=== PATIENT | female | born 1970 | race Caucasian/White ===

== ENCOUNTER 2017-11-16 12:19 | Outpatient (CLI) | payer OTHER ==
--- NOTE | 2017-11-16 14:45 | ULT ---
RENAL ULTRASOUND: HISTORY: Hematuria. COMPARISON: None. TECHNIQUE: Sagittal and transverse imaging of the kidneys is performed. FINDINGS: The urinary bladder has an overall normal appearance. No obvious mucosal abnormality. Prevoid volum e is 142 mL. The left and right ureteral jets are identified. There is increased echogenicity of the left and right renal cortex. Correlate clinically for medical renal disease. No discrete masses in either kidney. Bilaterally, no hydronephrosis. The right kid neri measures 10.4 x 4.7 x 3.9 cm. The left kidney measures 10.5 x 5.8 x 5.0 cm. IMPRESSION: Increased echogenicity of the left and right kidney. Correlate clinically for medical renal disease. No hydronephrosis. POS: [facility]
== END 2017-11-16 12:20 | disposition home or self-care (01) ==
LOC: ULT 12:19
PROVIDERS: ATTEND Urology
DX: R31.9 Hematuria, unspecified (principal); N28.9 Disorder of kidney and ureter, unspecified
CPT/HCPCS: 76770

== ENCOUNTER 2018-10-11 11:15 | Emergency (ER) | payer OTHER | END 2018-10-11 11:37 | disposition home or self-care (01) | LOC: ERS 11:15 | DX: B02.9 Zoster without complications (principal); F41.9 Anxiety disorder, unspecified; F17.210 Nicotine dependence, cigarettes, uncomplicated; Z79.899 Other long term (current) drug therapy; Z79.51 Long term (current) use of inhaled steroids | CPT/HCPCS: 99283 ==

== ENCOUNTER 2018-11-13 01:37 | Outpatient (CLI) | payer OTHER ==
[2018-11-13 10:13] LABS: #Eosinphils 0.1 thou/uL (0.0-0.7); #Monocytes 0.5 thou/uL (0.11-0.59); #Neutrophils 3.6 thou/uL (1.40-6.50); %Basophils 0.7 % (0.0-1.0); %Eosinophils 1.2 % (0.0-10.0); %Lymphocytes 41.9 % (21.0-51.0); %Monocytes 6.7 % (0.0-10.0); %Neutrophils 49.5 % (42.0-75.0); Hemoglobin 13.1 g/dL (12.0-16.0); Mean Corpuscular HGB CONC 33.5 g/dL (32.0-36.0); Mean Corpuscular Hemoglobin 32.3 pg (27.0-31.0); Mean Corpuscular Volume 96.4 fL (78.0-98.0); Mean Platelet Volume 8.7 fL (7.4-10.4); Platelet Count 165 thou/uL (130-400); RBC Distribution Width 13.8 % (11.5-14.5); Red Blood Cell (RBC) Count 4.05 mill/uL (4.20-5.40); White Blood Cell (WBC) Count 7.3 thou/uL (4.8-10.8)
== END 2018-11-13 01:38 | disposition home or self-care (01) ==
LOC: LABBT 01:37
PROVIDERS: ATTEND Orthopaedic Surgery
DX: Z01.812 Encounter for preprocedural laboratory examination (principal); G56.01 Carpal tunnel syndrome, right upper limb
CPT/HCPCS: 85025

== ENCOUNTER 2018-11-15 06:26 | Day surgery (SDC) | payer OTHER ==
[2018-11-13 09:23] VITALS: BMI 19.7
[2018-11-15] MEDS ORDERED: Lidocaine 1% w/Epinephrine 1:100K 20 ML VIAL ONE (07:59)
[2018-11-15] MEDS ORDERED: Scopolamine 1.5 mg/72 hour Patch ONE (08:05)
[2018-11-15] MEDS ORDERED: PROPOFOL 200 MG/20 ML VIAL ONE (10:48)
--- NOTE | 2018-11-15 13:32 | OP ---
DATE OF PROCEDURE: 11/15/2018 PREOPERATIVE DIAGNOSIS: Right carpal tunnel syndrome. POSTOPERATIVE DIAGNOSIS: Right carpal tunnel syndrome. PROCEDURE PERFORMED: Right open carpal tunnel release. [employer]: None. ANESTHESIA: Massimo Myers MD. The patient received a LMA with 10 mL of 1% lidocaine with epinephrine. ESTIMATED BLOOD LOSS: Less than 50 mL. TOURNIQUET TIME: 4 minutes at 250 mmHg. ANTIBIOTICS: Ancef 2 g. IMPLANTS: None. COMPLICATIONS: None. HISTORY OF PRESENT ILLNESS: Ms. Patten is a pleasant 48-year-old female, who presented to me with right wrist pain, numbness and tingling. The patient had a history of hand laceration when she was 11-year-old with no functional deficits afterwards. The patient had injection in August, which gave a good relief from her numbness and tingling in her hand. I discussed that she pain relief from the injection, but she had failed conservative measures. I discussed the risks and benefits of right open carpal tunnel release to include pain, scar, bleeding, infection, decreased range of motion and strength, continued pain, damage to vital structures, and loss of life or limb. The patient understood the risks and benefits and would like to proceed. DESCRIPTION OF PROCEDURE: Time-out was performed designating the patient's right upper extremity as the operative site, based on site, consents, and marking. After time-out, the patient's right hand was prepped and draped in sterile fashion. We made an incision down proximal to Elizondo's cardinal line in-line with the patient's 4th ray down through the skin, down through the palmar fascia coming down on the patient's transverse carpal ligament and the palmaris brevis. We incised in- line, released to ensure there was no adhesions or compression proximally. We washed the wound, controlled bleeding, closed with 4-0 nylon, and placed a soft tissue dressing. The patient will follow up with me in 10 to 12 days. Sent home with hydrocodone. Begin range of motion of the fingers. I injected a total of 10 mL of lidocaine pre and postprocedure for pain relief. Job ID: [id number] MTDD
== END 2018-11-15 10:40 | disposition home or self-care (01) ==
LOC: SDC 06:26
PROVIDERS: ATTEND Orthopaedic Surgery
PROC: 01N50ZZ Release Median Nerve, Open Approach (ICD-10-PCS; principal; 2018-11-15)
DX: G56.01 Carpal tunnel syndrome, right upper limb (principal); E78.5 Hyperlipidemia, unspecified; G43.909 Migraine, unspecified, not intractable, without status migrainosus; J30.9 Allergic rhinitis, unspecified; F32.9 Major depressive disorder, single episode, unspecified; F41.1 Generalized anxiety disorder; Z79.899 Other long term (current) drug therapy; Z88.1 Allergy status to other antibiotic agents; Z88.5 Allergy status to narcotic agent; Z88.8 Allergy status to other drugs, medicaments and biological substances; Z91.041 Radiographic dye allergy status; Z91.013 Allergy to seafood
CPT/HCPCS: J0690; J2001

== ENCOUNTER 2019-07-04 15:16 | Outpatient (CLI) | payer OTHER ==
--- NOTE | 2019-07-04 15:46 | ULT ---
BILATERAL RENAL ULTRASOUND: 07/04/19 HISTORY: Chronic kidney disease. FINDINGS: The right kidney measures 10.5 cm in length and the left kidney measures 10.6 cm in length. No focal mass or hydronephrosis seen. Cortical thickening and echodensity is normal. The urinary bladder is in completely distended with a volume of 26 mL. IMPRESSION: No significant abnormalities are seen. POS: [facility]
== END 2019-07-04 15:17 | disposition home or self-care (01) ==
LOC: BICULT 15:16
PROVIDERS: ATTEND Internal Medicine Nephrology
DX: N18.1 Chronic kidney disease, stage 1 (principal)
CPT/HCPCS: 76770

== ENCOUNTER 2020-10-05 14:49 | Outpatient (CLI) | payer OTHER | END 2020-10-05 14:50 | disposition home or self-care (01) | LOC: BICRAD 14:49 | PROVIDERS: ATTEND Internal Medicine | DX: Z02.71 Encounter for disability determination (principal); M47.816 Spondylosis without myelopathy or radiculopathy, lumbar region | CPT/HCPCS: 71046; 72100 ==

== ENCOUNTER 2023-06-16 14:07 | Outpatient (CLI) | payer OTHER, MEDICAID | END 2023-06-16 14:08 | disposition home or self-care (01) | LOC: BICCT 14:07 | PROVIDERS: ATTEND Registered Nurse | DX: Z12.2 Encounter for screening for malignant neoplasm of respiratory organs (principal); Z87.891 Personal history of nicotine dependence | CPT/HCPCS: 71271 ==

== ENCOUNTER 2023-10-05 15:19 | Outpatient (CLI) | payer OTHER, MEDICAID | END 2023-10-05 15:20 | disposition home or self-care (01) | LOC: BICRAD 15:19 | PROVIDERS: ATTEND Specialist | DX: M47.812 Spondylosis without myelopathy or radiculopathy, cervical region (principal); M43.12 Spondylolisthesis, cervical region | CPT/HCPCS: 72040 ==

== ENCOUNTER 2024-05-22 09:01 | Emergency (ER) | payer OTHER ==
[2024-05-22 10:05] LABS: #Basophils 0.03 10x3/uL (0.0-0.2); %Basophils 0.4 % (0.0-1.0); %Eosinophils 0.8 % (0.0-10.0); %Lymphocytes 32.4 % (21.0-51.0); %Monocytes 7.2 % (0.0-10.0); %Neutrophils 59.1 % (42.0-75.0); Hematocrit 36.7 % (36.0-47.0); Hemoglobin 12.2 g/dL (12.0-16.0); Mean Corpuscular HGB CONC 33.2 g/dL (32.0-36.0); Mean Corpuscular Hemoglobin 30.1 pg (27.0-31.0); Mean Corpuscular Volume 90.6 fL (78.0-98.0); Platelet Count 257 10x3/uL (130-400); RBC Distribution Width 14.6 % (11.5-14.5); Red Blood Cell (RBC) Count 4.05 mill/uL (4.20-5.40)
[2024-05-22 10:19] LABS: ALT (SGPT) 28 U/L (8-55); AST (SGOT) 29 U/L (5-34); Albumin 4.1 g/dL (3.5-5.0); Alkaline Phosphatase 57 U/L (40-110); Anion Gap 12 mmol/L (10-20); BUN (Urea Nitrogen) 13 mg/dL (9.8-20.1); Bilirubin, Total 0.3 mg/dL (0.2-1.2); Calc. Creatinine Clearance 0 mL/min (70-130); Calcium 9.3 mg/dL (7.8-10.44); Carbon Dioxide 28 mmol/L (22-29); Chloride 105 mmol/L (98-107); Estimated GFR 76; Globulin 3.3 g/dL (2.4-3.5); Glucose 111 mg/dL (70-105); Protein, Total 7.4 g/dL (6.0-8.3); Sodium 141 mmol/L (136-145)
[2024-05-22 10:48] LABS: Bacteria/HPF None Seen HPF (None Seen); Bilirubin Negative (Negative); Blood, Urine 3+ (Negative); CAUTI Indications for Culture Pelvic or flank pain; Clarity Clear (Clear); Glucose, Urine (Dipstick) Normal (Negative); Ketone, Urine Negative (Negative); Leukocyte Negative Leu/uL (Negative); Nitrite Negative (Negative); Protein, Urine (Dipstick) Negative (Neg-Trace); RBC/HPF 21-50 HPF (0-3); Specific Gravity, Urine 1.009 (1.002-1.036); Squamous Epithelial 0-3 HPF (0-3); Urobilinogen Normal mg/dL (Less than 2); WBC/HPF 0-3 HPF (0-3)
[2024-05-22 10:51] LABS: Urine Culture Reflex No No
== END 2024-05-22 11:41 | disposition home or self-care (01) ==
LOC: ERS 09:01
DX: M79.605 Pain in left leg (principal); M79.89 Other specified soft tissue disorders
CPT/HCPCS: 36415; 80053; 81001; 83880; 85025; 85379